=== PATIENT | female | born 1960 | race Caucasian/White ===

== ENCOUNTER 2019-09-10 08:03 | Emergency (ER) | payer OTHER ==
[~2019-09-10] VITALS: Ht 157.5 cm; Wt 88.6 kg
[2019-09-10 08:48] LABS: BILIRUBIN,URINE NEGATIVE (NEG); CLARITY,URINE CLEAR; COLOR,URINE YELLOW; NITRITE,URINE NEGATIVE (NEG); PROTEIN,URINE NEGATIVE (NEG-TRACE); UROBILINOGEN,URINE 0.2 mg/dL (0.2 mg/dL)
[2019-09-10 08:51] LABS: BASO # 0.1 x10^3/uL (0.0-0.2); BASO % 2 % (0-3); EOS # 0.3 x10^3/uL (0.0-0.7); EOS % 3 % (0-3); HEMATOCRIT 38.5 % (36.0-47.0); HEMOGLOBIN 12.6 g/dL (12.0-15.5); LYMPH # 2.4 x10^3/uL (1.0-4.8); LYMPH % 30 % (24-48); MEAN CORPUSCULAR HEMOGLOBIN 28 pg (25-35); MEAN CORPUSCULAR HGB CONC 33 g/dL (31-37); MEAN CORPUSCULAR VOLUME 86 fL (79-100); MONO # 0.8 x10^3/uL (0.0-1.1); MONO % 11 % (0-9); NEUT # 4.3 x10^3/uL (1.8-7.7); NEUT % 55 % (31-73); PLATELET COUNT 305 x10^3/uL (140-400); RED BLOOD COUNT 4.47 x10^6/uL (3.50-5.40); RED CELL DISTRIBUTION WIDTH 14.5 % (11.5-14.5); WHITE BLOOD COUNT 7.9 x10^3/uL (4.0-11.0)
[2019-09-10 09:00] LABS: CALCIUM 9.2 mg/dL (8.5-10.1); CREATININE 0.8 mg/dL (0.6-1.0); GFR 73.7
[2019-09-10 09:02] LABS: SQUAMOUS EPITHELIAL CELL,UR MOD /LPF
[2019-09-10 09:03] LABS: BACTERIA,URINE 0 /HPF (0-FEW); RBC,URINE 0 /HPF (0-2); WBC,URINE OCC /HPF (0-4)
[2019-09-10 09:05] LABS: ALBUMIN 3.7 g/dL (3.4-5.0); TOTAL PROTEIN 8.1 g/dL (6.4-8.2)
[2019-09-10 09:06] LABS: ALBUMIN/GLOBULIN RATIO 0.8 (1.0-1.7); C-REACTIVE PROTEIN 1.7 mg/L (0-3.3); TOTAL BILIRUBIN 0.2 mg/dL (0.2-1.0)
[2019-09-10] MEDS ORDERED: IOHEXOL 300 MG/ML 100ML VIAL. IV ONE (09:30)
[2019-09-10] MEDS ORDERED: CONTRAST GIVEN. MC PRN (09:30)
--- NOTE | 2019-09-10 09:42 | EKG ---
[facility] [address] [place] [address] Test Date: 2019-09-10 Test Time: 08:20:25 Pat Name: KIRSTEN DIAZ Department: Room: Gender: F Plate Keeper: : 1960 Requested By: CARLOS GREENBERG Order Number: [id number] Reading MD: Barry Petit MD Measurements Intervals [place] Rate: 54 P: 43 WV: 180 QRS: 9 QRSD: 88 T: 38 QT: 428 QTc: 408 Interpretive Statements SINUS RHYTHM Electronically Signed On 09-10-2019 12:28:29 CDT by Barry Petit MD
[2019-09-10] MEDS ORDERED: ONDANSETRON PF 4 MG/2 ML VIAL. IVP ONE (10:00)
--- NOTE | 2019-09-10 10:14 | RAD ---
CT ANGIOGRAPHY HEAD AND NECK, CT HEAD WO CONTRAST History:Reason: dizziness, headache, off balance / Spl. Instructions: / History: Technique: Noncontrast head CT was performed in correlation with this exam. After bolus of intravenous contrast, volumetric CT data acquisition was acquired of the head and neck. Multiplanar reconstruction images to include MIP and 3-D reconstruction images are submitted. Exposure: One or more of the following individualized dose reduction techniques were utilized for this examination: 1. Automated exposure control 2. Adjustment of the mA and/or kV according to patient size 3. Use of iterative reconstruction technique. Comparison: None Any determination of stenosis is based on NASCET criteria. Noncontrast CT head: No intracranial hemorrhage. No mass effect. No hydrocephalus. Chronic left basal ganglia lacunar infarct. Imaged orbits are unremarkable. Imaged paranasal sinuses and mastoid air cells are clear. Head CTA: ICA: No stenosis, occlusion or aneurysm. MCA: No stenosis, occlusion or aneurysm. JANAY: No stenosis, occlusion or aneurysm. GLOBAL COMPENSATION ANALYST: No stenosis, occlusion or aneurysm. Basilar artery: No stenosis, occlusion or aneurysm. Distal vertebral arteries: No stenosis, occlusion or aneurysm. CT angiogram neck: Aortic arch: Conventional arch anatomy Common carotid arteries: No stenosis, occlusion or dissection. Internal carotid arteries: Irregularity of the left mid internal carotid artery within the neck, may relate to atheromatous plaque with fibromuscular dysplasia. External carotid arteries: Patent Vertebral arteries: Tortuous proximal left vertebral artery with moderate narrowing just after the origin. No occlusion. Imaged lung apices are unremarkable. Soft tissues appear normal. Bones: Multilevel cervical spondylosis. Impression: Head CT: 1. No acute intracranial abnormality. 2. Chronic left basal ganglia lacunar infarct. CT angiogram head and neck: 1. No high-grade arterial stenosis or occlusion within the head or neck. 2. Irregularity of the left mid to upper internal carotid artery within the neck, may relate atheromatous plaque or fibromuscular dysplasia. 3. Moderate narrowing of the left proximal vertebral artery. Electronically signed by: Per Cox DO (09/10/2019 10:10 AM) [id number]
[2019-09-10] MEDS ORDERED: IV NORMAL SALINE 1000ML BAG 1,000 ML IV ONE (11:00)
--- NOTE | 2019-09-10 11:13 | RAD ---
CHEST AP ONLY History: Reason: dizzy / Spl. Instructions: / History: Comparison: None. Findings: No consolidation or pleural effusion. Normal heart size. No pneumothorax. Impression: 1. No acute cardiopulmonary process. Electronically signed by: Per Cox DO (09/10/2019 11:10 AM) [id number]
[2019-09-10 13:04] VITALS: BP 113/59
[2019-09-10] MEDS ORDERED: ONDA4TAB7 PO (13:27)
--- NOTE | 2019-09-10 15:15 | PHYS DOC ---
Past Medical History Past Medical History: CVA, High Cholesterol, Hypertension Additional Past Medical Histor: pre-diabetic, diabetic neuropathy Past Surgical History: Other Additional Past Surgical Histo: vein stripping Smoking Status: Former Smoker Additional Information: quit smoking 2004 Alcohol Use: None Drug Use: None General Adult EDM: Chief Complaint: DIZZY/LIGHT HEADED HPI: HPI: Patient is a 59 year old female who presents with dizziness. Patient states over the last couple days she has had some nausea. Last night she had some vomiting and loose stools. She tried to go to work today and felt very lightheaded and nauseous. She felt like she was going to have a large amount of diarrhea. She states when she tries to walk it feels like she has tunnel vision and that she cannot stay upright. She denies leaning to one side or the other. She denies any numbness, weakness, speech difficulty, confusion. She denies any neck pain. Review of Systems: Review of Systems: General: Denies fever, chills, sweats, fatigue Eyes: Denies drainage, blurred vision HENT: Denies rhinorrhea, sore throat Respiratory: Denies cough, shortness of breath, wheezing Cardiac: Denies edema, palpitations, chest pain GI: Denies abdominal pain. Reports N/V MSK: Denies back pain, neck pain Skin: Denies rash, jaundice Neuro: Reports headache, dizziness Psychiatric: Denies SI/HI Heart Score: Risk Factors: Risk Factors: DM, Current or recent (<one month) smoker, HTN, HLP, family history of CAD, obesity. Risk Scores: Score 0 - 3: 2.5% MACE over next 6 weeks - Discharge Home Score 4 - 6: 20.3% MACE over next 6 weeks - Admit for Clinical Observation Score 7 - 10: 72.7% MACE over next 6 weeks - Early Invasive Strategies Current Medications: Current Medications Medications (Trade) Dose Ordered Sig/Danyell Start Time Stop Time Status Last Admin Dose Admin Info (CONTRAST GIVEN -- Rx MONITORING) 1 each PRN DAILY PRN 09/10/19 09:30 09/10/19 13:43 DC Iohexol (Omnipaque 300 Mg/ml) 75 ml 1X ONCE 09/10/19 09:30 09/10/19 09:31 DC 09/10/19 09:50 75 ML Ondansetron HCl (Zofran) 4 mg 1X ONCE 09/10/19 10:00 09/10/19 10:01 DC 09/10/19 09:27 4 MG Sodium Chloride 1,000 ml @ 0 mls/hr 1X ONCE 09/10/19 11:00 09/10/19 11:01 DC 09/10/19 11:10 1,000 MLS/HR Allergies: Allergies: Allergies Coded Allergies Type Severity Reaction Last Updated Verified loracarbef Allergy Intermediate Hives 09/10/19 Yes Physical Exam: PE: Constitutional: Well developed, well nourished, Cooperative, NAD, non-toxic appearing HEENT: Normocephalic, atraumatic, oropharynx moist, EOMI, PERRL, no drainage from eyes, normal conjunctiva Neck: Supple, normal range of motion, no stridor Cardiovascular: RRR, 2+ radial pulses bilaterally, no edema Respiratory: CTA bilaterally, no respiratory distress, no wheezing/crackles Abdomen: Soft, nontender, nondistended, no masses Skin: Warm, dry, intact Extremities: No obvious deformities Neurologic: Alert and Oriented x3, 5/5 strength in bilateral upper and lower extremities distally and proximally, no focal deficits, cranial nerves II through XII intact Psychologic: Normal affect, normal judgment, normal mood. No SI/HI Current Patient Data: Labs: Laboratory Tests Test 09/10/19 08:40 09/10/19 08:44 09/10/19 11:52 Urine Collection Type Unknown Urine Color Yellow Urine Clarity Clear Urine pH 5.0 (<5.0-8.0) Urine Specific [place] 1.025 (1.000-1.030) Urine Protein Negative mg/dL (NEG-TRACE) Urine Glucose (UA) >=1000 mg/dL (NEG) Urine Ketones (Stick) Negative mg/dL (NEG) Urine Blood Negative (NEG) Urine Nitrite Negative (NEG) Urine Bilirubin Negative (NEG) Urine Urobilinogen Dipstick 0.2 mg/dL (0.2 mg/dL) Urine Leukocyte Esterase Negative (NEG) Urine RBC 0 /HPF (0-2) Urine WBC Occ /HPF (0-4) Urine Squamous Epithelial Cells Mod /LPF Urine Bacteria 0 /HPF (0-FEW) White Blood Count 7.9 x10^3/uL (4.0-11.0) Red Blood Count 4.47 x10^6/uL (3.50-5.40) Hemoglobin 12.6 g/dL (12.0-15.5) Hematocrit 38.5 % (36.0-47.0) Mean Corpuscular Volume 86 fL (79-100) Mean Corpuscular Hemoglobin 28 pg (25-35) Mean Corpuscular Hemoglobin Concent 33 g/dL (31-37) Red Cell Distribution Width 14.5 % (11.5-14.5) Platelet Count 305 x10^3/uL (140-400) Neutrophils (%) (Auto) 55 % (31-73) Lymphocytes (%) (Auto) 30 % (24-48) Monocytes (%) (Auto) 11 % (0-9) H Eosinophils (%) (Auto) 3 % (0-3) Basophils (%) (Auto) 2 % (0-3) Neutrophils # (Auto) 4.3 x10^3/uL (1.8-7.7) Lymphocytes # (Auto) 2.4 x10^3/uL (1.0-4.8) Monocytes # (Auto) 0.8 x10^3/uL (0.0-1.1) Eosinophils # (Auto) 0.3 x10^3/uL (0.0-0.7) Basophils # (Auto) 0.1 x10^3/uL (0.0-0.2) D-Dimer (Doreen) 2.22 ug/mlFEU (0.00-0.50) H Sodium Level 141 mmol/L (136-145) Potassium Level 4.0 mmol/L (3.5-5.1) Chloride Level 102 mmol/L (98-107) Carbon Dioxide Level 30 mmol/L (21-32) Anion Gap 9 (6-14) Blood Urea Nitrogen 20 mg/dL (7-20) Creatinine 0.8 mg/dL (0.6-1.0) Estimated GFR (Cockcroft-Gault) 73.7 BUN/Creatinine Ratio 25 (6-20) H Glucose Level 144 mg/dL (70-99) H Calcium Level 9.2 mg/dL (8.5-10.1) Total Bilirubin 0.2 mg/dL (0.2-1.0) Aspartate Amino Transferase (AST) 18 U/L (15-37) Alanine Aminotransferase (ALT) 25 U/L (14-59) Alkaline Phosphatase 95 U/L (46-116) Lactate Dehydrogenase 181 U/L (81-234) Troponin I Quantitative 0.034 ng/mL (0.000-0.055) 0.043 ng/mL (0.000-0.055) C-Reactive Protein, Quantitative 1.7 mg/L (0-3.3) Total Protein 8.1 g/dL (6.4-8.2) Albumin 3.7 g/dL (3.4-5.0) Albumin/Globulin Ratio 0.8 (1.0-1.7) L Laboratory Tests 09/10/19 08:44 Laboratory Tests 09/10/19 08:44 Vital Signs: Vital Signs Date Time Temp Pulse Resp B/P (MAP) Pulse Ox O2 Delivery O2 Flow Rate FiO2 09/10/19 13:04 58 18 97 09/10/19 08:11 97.6 147/64 (91) Room Air 97.6 EKG: EKG: [] Radiology/Procedures: Radiology/Procedures: [] Course & Med Decision Making: Course & Med Decision Making Pertinent Labs and Imaging studies reviewed. (See chart for details) Patient is a 59-year-old female who presents to the emergency room with lightheadedness. Patient has a normal neurologic exam but does have significant dizziness and nausea upon setting up. Given patient's history of stroke will order a CT Angio head and neck to evaluate for posterior stroke and vertebral artery dissection. CT is negative. Work-up is significant for dehydration. Patient was given fluids here in the emergency room. Symptoms resolved and patient was able to walk without difficulty. It is likely that her symptoms are due to dehydration. I offered patient admission versus trying at home. Patient would like to go home. She states she will return if her symptoms return. Patient's test results and vitals while in the ED were fully reviewed and discussed with the patient. Patient is stable and at this time does not need admission to the hospital. We have discussed strict return precautions and the importance of following up with their Primary Care Physician. Patient stated understanding and was given an opportunity to ask any questions. Dragon Disclaimer: Dragon Disclaimer: This electronic medical record was generated, in whole or in part, using a voice recognition dictation system. Departure Departure Impression: Primary Impression: Dehydration Additional Impression: Dizziness Disposition: 01 HOME, SELF-CARE Condition: IMPROVED Patient Instructions: Dehydration, Adult, [id number], Dizziness, [id number]-[id number] Scripts Ondansetron Hcl (ZOFRAN) 4 Mg Tablet 1 TAB PO PRN Q6-8HRS for nausea, #12 TAB Prov: CARLOS GREENBERG MD 09/10/19 CARLOS GREENBERG MD Sep 10, 2019 15:15
== END 2019-09-10 13:43 | disposition home or self-care (01) ==
LOC: ER 08:03
DX: E86.0 Dehydration (principal); R42 Dizziness and giddiness; E78.00 Pure hypercholesterolemia, unspecified; I10 Essential (primary) hypertension; E11.40 Type 2 diabetes mellitus with diabetic neuropathy, unspecified; Z86.73 Personal history of transient ischemic attack (TIA), and cerebral infarction without residual deficits; Z87.891 Personal history of nicotine dependence; Z88.8 Allergy status to other drugs, medicaments and biological substances
CPT/HCPCS: 36415; 70450; 70496; 70498; 71045; 80053; 81001; 83615; 84484; 85025; 85379; 86140; 93005; 96374; 99285; J2405; J7030; Q9967

== ENCOUNTER → 2019-09-25 | Outpatient (CLI) | payer OTHER ==
[2019-09-10 13:04] VITALS: BP 113/59
[~2019-09-25] MED LIST: ONDA4TAB7 PO
--- NOTE | 2019-09-25 10:24 | RAD ---
MR#: [id number] Date of Study: 09/25/2019 Ordering Physician: ELI LEVINE, Referring Physician: ELI LEVINE, Tech: Landon Perez MBA, RDMS, RVT, RDCS, RTR APPROVED REPORT Patient Location: OUT-PATIENT Laterality:Bilateral Indications CVA/TIA: Doppler Spectral Velocity Analysis Right Left pCCA 79/15 cm/spCCA 86/24 cm/s mCCA 86/26 cm/smCCA 93/28 cm/s dCCA 83/29 cm/sdCCA 78/27 cm/s Bulb 73/19 cm/sBulb 57/20 cm/s ECA 103/ cm/sECA 97/ cm/s pICA 81/29 cm/spICA 57/16 cm/s Balwinder 68/28 cm/smICA 86/31 cm/s dICA 70/28 cm/sdICA 89/33 cm/s Vert. 52/ cm/sVert. 36/ cm/s Subcl. 80/ cm/sSubcl. 129/ cm/s ICA/CCA 0.94ICA/CCA 1.03 Findings Grayscale images of the bilateral carotid vessels demonstrates mild diffuse plaquing. On the right side the common, internal and external carotid velocities are within normal limits. Nor mal ICA to CCA ratios. Vertebral velocities are within normal limits. On the left side the common, internal and external carotid velocities are also within normal limits. Normal ICA to CCA ratios. Vertebral velocities are within normal limits and antegrade. No significant subclavian stenosis is identified. Critical Notification Critical Value: No <Conclusion> 1. No significant carotid occlusive disease bilaterally. Signed by : Eli Levine, Electronically Approved : 09/25/2019 10:23:58
--- NOTE | 2019-09-25 10:55 | CARD ---
MR#: [id number] Date of Study: 09/25/2019 Ordering Physician: ELI LEVINE, Referring Physician: ELI LEVINE, Tech: Linn Persaud [facility] APPROVED REPORT EXAM: Two-dimensional and M-mode echocardiogram with Doppler and color Doppler. Other Information Quality : Fair INDICATION Murmur 2D DIMENSIONS RVDd3.3 (2.9-3.5cm)Left Atrium(2D)3.8 (1.6-4.0cm) IVSd1.1 (0.7-1.1cm)Aortic Root(2D)2.9 (2.0-3.7cm) LVDd4.8 (3.9-5.9cm)LVOT Diameter2.0 (1.8-2.4cm) PWd1.1 (0.7-1.1cm)LVDs3.5 (2.5-4.0cm) FS (%) 27.3 %SV55.8 ml LVEF(%)60.0 (>50%) Aortic Valve AoV Peak Gopi.206.4cm/sAoV VTI49.2cm AO Peak GR.17.0mmHgLVOT Peak Gopi.145.2cm/s AO Mean GR.10mmHgAVA (VMAX)2.15cm2 JS (VTI)2.87nx8EU P 1/2 [id number] Mitral Valve MV E Jnepdvkc48.5cm/sMV DECEL UKBF604ce MV A Urqrirtn79.6cm/sE/A Ratio1.3 Tricuspid Valve TR P. Vxmlondo928rb/sRAP WUEVFDMR1soWq TR Peak Gr.04ogAiLDYR83vwBh Pulmonary Vein S1 Uazgkcgs30.2cm/sD2 Tybjzuhe73.7cm/s LEFT VENTRICLE The left ventricle is normal size. There is normal left ventricular wall thickness. The left ventricu lar systolic function is normal and the ejection fraction is within normal range. The Ejection Fracti on is 55-60%. There is normal LV segmental wall motion. Transmitral Doppler flow pattern is Grade I-a bnormal relaxation pattern. RIGHT VENTRICLE The right ventricle is normal size. The right ventricular systolic function is normal. ATRIA The left atrium size is normal. The right atrium size is normal. The interatrial septum is intact wit h no evidence for an atrial septal defect or patent foramen ovale as noted on 2-D or Doppler imaging. AORTIC VALVE The aortic valve is not well visualized but appears to be functioning normally by Doppler interrogati on. Doppler and Color Flow revealed trace aortic regurgitation. There is no significant aortic valvul ar stenosis. MITRAL VALVE The mitral valve is normal in structure and function. Mitral annular calcification is mild. There is no evidence of mitral valve prolapse. There is no mitral valve stenosis. Doppler and Color-flow revea led trace to mild mitral regurgitation. TRICUSPID VALVE The tricuspid valve is normal in structure and function. Doppler and Color Flow revealed trace to mil d tricuspid regurgitation. The PA pressure was estimated at 26 mmHg. There is no tricuspid valve sten osis. PULMONIC VALVE The pulmonary valve is normal in structure and function. Doppler and Color Flow revealed no pulmonic valvular regurgitation. There is no pulmonic valvular stenosis. GREAT VESSELS The aortic root is normal in size. The ascending aorta is mild dilated at 3.7 cm The IVC is normal in size and collapses >50% with inspiration. PERICARDIAL EFFUSION There is no evidence of significant pericardial effusion. Critical Notification Critical Value: No <Conclusion> The left ventricular systolic function is normal and the ejection fraction is within normal range. Th e Ejection Fraction is 55-60%. There is normal LV segmental wall motion. The ascending aorta is mild dilated at 3.7 cm Signed by : Eli Levine, Electronically Approved : 09/25/2019 10:55:16
== END | disposition home or self-care (01) ==
LOC: ECHO 08:10
PROVIDERS: ATTEND Internal Medicine Cardiovascular Disease
DX: I08.1 Rheumatic disorders of both mitral and tricuspid valves (principal); I77.810 Thoracic aortic ectasia; I65.23 Occlusion and stenosis of bilateral carotid arteries; I63.9 Cerebral infarction, unspecified
CPT/HCPCS: 93306; 93880

== ENCOUNTER → 2020-02-06 | Outpatient (CLI) | payer OTHER ==
[2020-02-06 10:40] LABS: ALBUMIN 3.5 g/dL (3.4-5.0); ALBUMIN/GLOBULIN RATIO 0.8 (1.0-1.7); CALCIUM 8.9 mg/dL (8.5-10.1); CHOLESTEROL/HDL RATIO 4.2; CREATININE 0.7 mg/dL (0.6-1.0); GFR 85.9; POTASSIUM 4.2 mmol/L (3.5-5.1); TOTAL BILIRUBIN 0.2 mg/dL (0.2-1.0); TOTAL PROTEIN 7.9 g/dL (6.4-8.2)
[2020-02-07 01:10] LABS: HEMOGLOBIN A1C 6.7 % (4.8-5.6)
== END ==
LOC: LAB 09:43
PROVIDERS: ATTEND Family Medicine
DX: E78.5 Hyperlipidemia, unspecified (principal)
CPT/HCPCS: 36415; 80053; 80061; 83036

== ENCOUNTER → 2020-09-19 | Outpatient (CLI) | payer OTHER ==
[2020-09-19 09:03] LABS: BASO # 0.1 x10^3/uL (0.0-0.2); BASO % 1 % (0-3); EOS # 0.2 x10^3/uL (0.0-0.7); EOS % 2 % (0-3); HEMATOCRIT 37.6 % (36.0-47.0); HEMOGLOBIN 12.5 g/dL (12.0-15.5); LYMPH # 2.2 x10^3/uL (1.0-4.8); LYMPH % 29 % (24-48); MEAN CORPUSCULAR HEMOGLOBIN 28 pg (25-35); MEAN CORPUSCULAR HGB CONC 33 g/dL (31-37); MEAN CORPUSCULAR VOLUME 84 fL (79-100); MONO # 0.7 x10^3/uL (0.0-1.1); MONO % 9 % (0-9); NEUT # 4.4 x10^3/uL (1.8-7.7); NEUT % 59 % (31-73); PLATELET COUNT 305 x10^3/uL (140-400); RED BLOOD COUNT 4.48 x10^6/uL (3.50-5.40); RED CELL DISTRIBUTION WIDTH 15.8 % (11.5-14.5); WHITE BLOOD COUNT 7.5 x10^3/uL (4.0-11.0)
[2020-09-19 09:19] LABS: ALBUMIN 3.9 g/dL (3.4-5.0); CALCIUM 8.8 mg/dL (8.5-10.1); CREATININE 0.6 mg/dL (0.6-1.0); GFR 102.3; POTASSIUM 3.9 mmol/L (3.5-5.1); TOTAL BILIRUBIN 0.4 mg/dL (0.2-1.0); TOTAL PROTEIN 7.9 g/dL (6.4-8.2)
[2020-09-19 09:26] LABS: CHOLESTEROL/HDL RATIO 2.8
== END ==
LOC: LAB 08:41
PROVIDERS: ATTEND Family Medicine
DX: I10 Essential (primary) hypertension (principal); E11.42 Type 2 diabetes mellitus with diabetic polyneuropathy; E78.5 Hyperlipidemia, unspecified
CPT/HCPCS: 36415; 80053; 80061; 83036; 85025

== ENCOUNTER → 2021-01-14 | Outpatient (CLI) | payer OTHER ==
[2021-01-14 09:34] LABS: ALBUMIN 3.6 g/dL (3.4-5.0); ALBUMIN/GLOBULIN RATIO 0.8 (1.0-1.7); CREATININE 0.6 mg/dL (0.6-1.0); GFR 102.3; POTASSIUM 4.4 mmol/L (3.5-5.1); TOTAL BILIRUBIN 0.3 mg/dL (0.2-1.0); TOTAL PROTEIN 7.9 g/dL (6.4-8.2)
== END ==
LOC: LAB 08:34
PROVIDERS: ATTEND Internal Medicine Cardiovascular Disease
DX: I10 Essential (primary) hypertension (principal)
CPT/HCPCS: 36415; 80053; 80061; 83721

== ENCOUNTER → 2021-04-28 | Outpatient (CLI) | payer OTHER | LOC: LAB 13:58 | PROVIDERS: ATTEND Internal Medicine Pulmonary Disease | DX: U07.1 COVID-19 (principal) | CPT/HCPCS: U0003; U0005 ==

== ENCOUNTER → 2021-05-12 | Outpatient (CLI) | payer OTHER ==
[2021-05-12 15:24] LABS: ALBUMIN 3.7 g/dL (3.4-5.0); ALBUMIN/GLOBULIN RATIO 0.7 (1.0-1.7); CALCIUM 9.1 mg/dL (8.5-10.1); CREATININE 0.6 mg/dL (0.6-1.0); GFR 102.3; TOTAL BILIRUBIN 0.3 mg/dL (0.2-1.0); TOTAL PROTEIN 8.7 g/dL (6.4-8.2)
== END ==
LOC: LAB 14:41
PROVIDERS: ATTEND Family Medicine
DX: E11.42 Type 2 diabetes mellitus with diabetic polyneuropathy (principal)
CPT/HCPCS: 36415; 80053; 83036